=== PATIENT | female | born 1955 | race Caucasian/White ===

== ENCOUNTER 2016-05-13 03:56 | Inpatient (IN) | payer OTHER ==
[2016-05-13] MEDS ORDERED: FAMOTIDINE 20 MG/50 ML IVPB 50 ML IVPB ONE ×2 (05:46→06:12)
[2016-05-13] MEDS ORDERED: SODIUM CHLORIDE 1,000 ML IV STA ×2 (05:46→11:43)
[2016-05-13] MEDS ORDERED: ONDANSETRON 4 MG/2 ML VIAL IVPB ONE (05:48)
--- NOTE | 2016-05-13 05:49 | PDOC ---
[id number] PAIN/RECTAL BLEEDING/VOMITING Time Seen by Provider: 05/13/16 05:15 History Source: Patient Exam Limitations: No Limitations - History of Present Illness Travel History: No Initial Comments: 05/13/16 05:50 60yo Female patient with extensive history and allergies presents to ED c/o lower abd pain with nausea/vomiting-constant & diarrhea-x 10 starting at 6pm last night. Patient state she has history of Diverticulitis recurrent. She states she had a follow up appointment with Dr. Ramirez but was unable to go because she was sick with an infection. Patient was seen by her PCP Dr. Kirk, blood work done 2 weeks ago, ultrasound of abdomen done yesterday as outpatient , but she did not get any results. Patient unable to tolerate po. Patient also states she has allergies to everything. Timing/Duration: reports: constant, getting worse Quality: reports: severe (01/31) Abdominal Pain Onset Location: reports: RUQ Pain Radiation: reports: back Activities at Onset: reports: no specific activity Treatment Prior to Arrive: worse with: analgesics, antacids, cold pack, heat, laxative, enema, other Aggravating Factors: worse with: None, Defecation, Eating, Emotional upset, Exertion, [place], Movement, Voiding, Change in position Alleviating Factors: worse with: None, Belching, Shallow Breathing, Defecation, Eating, Holding Breath, Passing Gas, Change in Position, Rest, Voiding, Vomiting Past History - Travel Traveled outside of the country in the last 30 days: No Close contact w/someone who was outside of country & ill: No - Past Medical History Allergies/Adverse Reactions: Allergies Allergy/AdvReac Type Severity Reaction Status Date / Time aspirin Allergy Verified 04/17/15 18:06 clindamycin Allergy Verified 05/13/16 18:11 codeine Allergy Verified 04/17/15 18:06 epinephrine Allergy Verified 04/17/15 18:06 iodine Allergy Verified 04/17/15 18:06 latex Allergy Verified 05/13/16 18:11 magnesium Allergy Verified 04/17/15 18:06 meperidine HCl [From Demerol] Allergy Verified 04/17/15 18:06 metronidazole [From Flagyl] Allergy Verified 05/13/16 18:11 peanut Allergy Verified 05/13/16 18:12 Penicillins Allergy Verified 04/17/15 18:06 shellfish derived Allergy Verified 04/17/15 18:06 Sulfa (Sulfonamide Allergy Verified 04/17/15 18:06 Antibiotics) garlic AdvReac Verified 05/13/16 18:11 prilocec Allergy Uncoded 04/17/15 18:06 Home Medications: Ambulatory Orders Lisinopril [Prinivil] 10 mg PO DAILY 04/14/13 Lactobacillus Acidophilus [Bacid -] 1 tab PO DAILY tab 05/16/16 Metoclopramide HCl [Reglan -] 5 mg PO TIDAC #90 tablet 05/16/16 Ranitidine [Zantac -] 150 mg PO BID #60 tablet 05/16/16 Simethicone [Mylicon -] 80 mg PO Q4H PRN #0 tab.chew 05/16/16 Vancomycin Oral Solution 250 mg PO Q6HPO #40 ml 05/16/16 Cardiac Disorders: Yes (MURMUR) GI Disorders: Yes (REFLUX) HTN: Yes Hypercholesterolemia: Yes - Psycho/Social/Smoking Cessation Hx Anxiety: No Suicidal Ideation: No Smoking History: Never smoked Hx Alcohol Use: No Drug/Substance Use Hx: No Substance Use Type: None Abd/GI Specific PMHX - Complaint Specific PMHX Colitis: No Diverticulitis: No Gall Bladder Disease: No GERD: No Hepatitis: No Irritable Bowel Synd (IBS): No Pancreatitis: No GI Ulcer Disease: No Review of Systems - Review of Systems Able to Perform ROS?: Yes Is the patient limited Vietnamese proficient: No Constitutional: No: Chills, Fever HEENTM: No: Blurred Vision, Double Vision, Throat Pain Respiratory: No: Cough, Stridor, Wheezing, Productive cough Cardiac (ROS): No: Chest Pain, Edema, Lightheadedness, Palpitations, Chest Tightness ABD/GI: Yes: Diarrhea, Nausea, Poor Fluid Intake, Vomiting. No: Abdominal Distended, Constipated, Poor Appetite : No: Burning, Dysuria, Hematuria Musculoskeletal: Yes: Back Pain Integumentary: No: Bruising, Erythema, Rash Neurological: No: Headache, Seizure, Tingling, Tremors Hematologic/Lymphatic: No: Easy Bleeding, Easy Bruising, Swollen Glands All Other Systems: Reviewed and Negative *Physical Exam - Vital Signs Last Vital Signs Temp Pulse Resp BP Pulse Ox 98 F 91 H 19 152/60 96 05/13/16 04:56 05/13/16 04:56 05/13/16 04:56 05/13/16 04:56 05/13/16 04:56 - Physical Exam General Appearance: Yes: Nourished, Appropriately Dressed, Moderate Distress. No: Severe Distress, Alcohol on Breath HEENT: positive: EOMI, LAMAR, Normal ENT Inspection, Normal Voice, Symmetrical Neck: positive: Trachea midline, Supple. negative: Stridor, Lymphadenopathy (R) , Lymphadenopathy (L) Respiratory/Chest: positive: Lungs Clear, Normal Breath Sounds. negative: Respiratory Distress, Accessory Muscle Use, Labored Respiration, Rapid RR, Decreased Breath Sounds, Crackles, Rhonchi, Stridor, Wheezing, Hyperresonant, Dullness Cardiovascular: positive: Regular Rhythm, Regular Rate. negative: Edema, JVD, Murmur Gastrointestinal/Abdominal: positive: Soft, Increased Bowel Sounds, Guarding, Tenderness (RUQ-Mid abdominal tenderness on examination.). negative: Normal Bowel Sounds, Decreased BS, Distended, Rebound Lymphatic: negative: Adenopathy Musculoskeletal: positive: Normal Inspection. negative: CVA Tenderness Extremity: positive: Normal Capillary Refill, Normal Inspection, Normal Range of Motion Integumentary: positive: Normal Color, Dry, Warm. negative: Erythema, Pale, Cold, Clammy Neurologic: positive: mannequin wig maker II-XII NML intact, Fully Oriented, Alert, Normal Mood/ Affect, Normal Response, Motor Strength 5/5 ED Treatment Course - LABORATORY CBC & Chemistry Diagram: 05/16/16 09:05 05/16/16 09:05 - RADIOLOGY Radiology Studies Ordered: Category Date Time Status ABDOMEN CT WITHOUT CONTRAST [CT] Stat CT Scan 05/13/16 05:46 Ordered *DC/Admit/Observation/Transfer Diagnosis at time of Disposition: Colitis Abdominal pain Qualifiers: Abdominal location: unspecified location Qualified Code(s): R10.9 - Unspecified abdominal pain - Discharge Dispostion Disposition: HOME Condition at time of disposition: Improved - Prescriptions
[2016-05-13] MEDS ORDERED: ONDANSETRON 4 MG/2 ML VIAL ONE (06:24)
--- NOTE | 2016-05-13 07:51 | PDOC ---
*Physical Exam - Vital Signs Last Vital Signs Temp Pulse Resp BP Pulse Ox 98 F 91 H 19 152/60 96 05/13/16 04:56 05/13/16 04:56 05/13/16 04:56 05/13/16 04:56 05/13/16 04:56 - Physical Exam General Appearance: Yes: Appropriately Dressed. No: Apparent Distress HEENT: positive: Normal Voice Neck: positive: Supple Respiratory/Chest: negative: Respiratory Distress Gastrointestinal/Abdominal: positive: Normal Bowel Sounds, Soft. negative: Distended, Guarding, Rebound Musculoskeletal: negative: CVA Tenderness Extremity: positive: Normal Inspection Integumentary: positive: Dry, Warm Neurologic: positive: Fully Oriented, Alert, Normal Mood/Affect ED Treatment Course - LABORATORY CBC & Chemistry Diagram: 05/13/16 07:55 05/13/16 07:55 - RADIOLOGY Radiology Studies Ordered: Category Date Time Status ABDOMEN & PELVIS CT WITH CONTR [CT] Stat CT Scan 05/13/16 07:37 Ordered - Medications Given in the ED: ED Medications Discontinued Medications Generic Name Dose Route Start Last Admin Trade Name Demarq PRN Reason Stop Dose Admin Famotidine/Sodium Chloride 50 mls @ 100 mls/hr 05/13/16 05:46 05/13/16 06:35 Pepcid 20 Mg Premixed Ivpb - IVPB 05/13/16 06:15 100 mls/hr ONCE ONE Administration Sodium Chloride 1,000 mls @ 1,000 mls/hr 05/13/16 05:46 05/13/16 06:35 Normal Saline - IV 05/13/16 06:45 1,000 mls/hr ASDIR STA Administration Ondansetron HCl 4 mg 05/13/16 05:48 05/13/16 06:40 Zofran Injection IVPB 05/13/16 05:49 4 mg ONCE ONE Administration Medical Decision Making - Medical Decision Making 05/13/16 07:45 Received signout at 7 AM. Patient is a 60-year-old female extensive medication allergies, diverticulitis, presenting with abdominal pain with nausea vomiting and diarrhea 10 days. Seen by her primary doctor, Dr. Abreu, and had blood work 2 weeks ago and states she also had an ultrasound r/o biliary pathology yesterday but does not yet know results. Symptoms worsen so patient presented to ED. Labs/CT pending 05/13/16 08:11 On my reassessment, patient complaining of pain to multiple areas including the right upper quadrant which she says she's had for a year on and off. Had an ultrasound that was done yesterday but does not yet know results. Also complaining of lower abdominal "soreness" since last night with nausea, vomiting and diarrhea. Patient in no apparent distress with no significant tenderness on exam currently. Labs/CT pending 05/13/16 08:15 05/13/16 08:26 Pt called me over to restroom to show me a bloody BM in toilet. Now states she' s been having bloody diarrhea since last night. T&S added to labs 05/13/16 11:26 Colitis to transverse colon w/ no evidence of diverticulitis specifically. Given bloody diarrhea and elevated white count, will treat with antibiotics at this time for ?infectious diarrhea. Pt has an extensive allergy profile including to flagyl (rash) and penicillin. Will give cipro at this time. In-pt team can discuss additional abx w/ ID as necessary. Case discussed with Dr. Maharaj, who is covering for Dr. Abreu and agrees w/ admission. has no knowledge of yesterday's ultrasound report. *DC/Admit/Observation/Transfer Diagnosis at time of Disposition: Colitis Abdominal pain Qualifiers: Abdominal location: unspecified location Qualified Code(s): R10.9 - Unspecified abdominal pain - Discharge Dispostion Condition at time of disposition: Fair Admit: Yes
[2016-05-13 08:15] LABS: BASOPHIL 0.2 % (0-2.0); EOSINOPHIL 0.2 % (0-4.5); MCH 26.9 pg (25.7-33.7); MCHC 32.5 g/dl (32.0-36.0); MEAN CELL VOLUME 82.8 fl (80-96); MEAN PLT VOLUME 9.4 fl (7.5-11.1); NEUTROPHILS 88.9 % (42.8-82.8); PLATELET COUNT 211 K/MM3 (134-434); RDW 14.1 % (11.6-15.6); WHITE BLOOD COUNT 12.4 K/mm3 (4.0-10.0)
[2016-05-13 08:35] LABS: URINE APPEARANCE CLEAR; URINE BILIRUBIN NEGATIVE (NEGATIVE); URINE COLOR STRAW; URINE GLUCOSE (UA) NEGATIVE (NEGATIVE); URINE KETONE TRACE (NEGATIVE); URINE LEUK ESTERASE NEGATIVE (NEGATIVE); URINE NITRITE NEGATIVE (NEGATIVE); URINE PROTEIN NEGATIVE (NEGATIVE); URINE UROBILINOGEN NEGATIVE E.U./dl (0.2-1.0)
[2016-05-13 08:36] LABS: URINE BLOOD 1+ (NEGATIVE)
[2016-05-13 08:38] LABS: URINE MUCUS RARE; URINE RBC 1 /hpf (0-3); URINE WBC 3 /hpf (3-5)
[2016-05-13 08:39] LABS: ALBUMIN 3.5 g/dl (3.4-5.0); ALK PHOS 123 U/L (45-117); AMYLASE 41 U/L (25-115); ANION GAP 9 (8-16); BILIRUBIN,TOTAL 0.6 mg/dL (0.2-1.0); CALCIUM 8.6 mg/dL (8.5-10.1); CO2 25 mmol/L (21-32); CREATININE 0.5 mg/dL (0.55-1.02); GLUCOSE,RANDOM 100 mg/dL (74-106); SGOT/AST 14 U/L (15-37); SGPT/ALT 21 U/L (12-78); TOT PROT 6.7 g/dl (6.4-8.2)
[2016-05-13 09:21] LABS: INR 1.11 (0.82-1.09); PROTHROMBIN TIME (PATIENT) 12.2 SEC (9.98-11.88)
[2016-05-13] MEDS ORDERED: DEXTROSE 5%-0.45% SALINE 1,000 ML IV SCH (09:30)
[2016-05-13] MEDS: LISINOPRIL 10 MG TABLET (FP) PO SCH (09:42)
[2016-05-13] MEDS ORDERED: LISINOPRIL 5 MG TABLET (FP) ONE (10:03)
[2016-05-13] MEDS: FAMOTIDINE 20 MG/50 ML IVPB 50 ML IVPB SCH ×2 (10:33→21:36)
[2016-05-13] MEDS: HEPARIN NA (PORCINE) 5,000 UNITS/ML 1ML VIAL SQ SCH ×2 (10:45→21:37)
[2016-05-13] MEDS ORDERED: METRONIDAZOLE 500 MG PREMIXED 100 ML IVPB ONE (11:29)
[2016-05-13] MEDS ORDERED: CIPROFLOXACIN 400 MG/D5W 200 ML IVPB ONE (11:29)
[2016-05-13] MEDS ORDERED: METOCLOPRAMIDE HCL INJECTION 10 MG/2 ML VIAL IVPUSH ONE (11:43)
[2016-05-13] MEDS ORDERED: METOCLOPRAMIDE HCL INJECTION 10 MG/2 ML VIAL ONE (12:14)
--- NOTE | 2016-05-13 12:57 | HP ---
Admitting History and Physical - Primary Care Physician PCP: Yaneli Ramirez - Admission Chief Complaint: came in for abdominal pain and vommitting History of Present Illness: 60yo Female patient with extensive history and allergies presents to ED c/o lower abd pain with nausea/vomiting-constant & diarrhea-x 10 starting at 6pm last night. Patient state she has history of Diverticulitis recurrent. She states she had a follow up appointment with Dr. Ramirez but was unable to go because she was sick with an infection. Patient was seen by her PCP Dr. ramirez, blood work done 2 weeks ago, ultrasound of abdomen done yesterday as outpatient , but she did not get any results. Patient unable to tolerate po. Patient also states she has allergies to everything. Timing/Duration: reports: constant, getting worse Quality: reports: severe (01/31) Abdominal Pain Onset Location: reports: RUQ Pain Radiation: reports: back Activities at Onset: reports: no specific activity Treatment Prior to Arrive: worse with: analgesics, antacids, cold pack, heat, laxative, enema, other Aggravating Factors: worse with: None, Defecation, Eating, Emotional upset, Exertion, [place], Movement, Voiding, Change in position Alleviating Factors: worse with: None, Belching, Shallow Breathing, Defecation, Eating, Holding Breath, Passing Gas, Change in Position, Rest, Voiding, Vomiting per patient she came in bc yesterday she was having vomitting for the entire afternoon and evening with dry heaves and excructiing lower abdominal pain, she was so weak that she came in ER patient got flagyl and cipro in the er and antiemetics as well History Source: Patient - Past Medical History Cardiovascular: Yes: HTN - Smoking History Smoking history: Never smoked - Alcohol/Substance Use Hx Alcohol Use: No Home Medications - Allergies Allergies/Adverse Reactions: Allergies Allergy/AdvReac Type Severity Reaction Status Date / Time aspirin Allergy Verified 04/17/15 18:06 codeine Allergy Verified 04/17/15 18:06 epinephrine Allergy Verified 04/17/15 18:06 iodine Allergy Verified 04/17/15 18:06 magnesium Allergy Verified 04/17/15 18:06 meperidine HCl [From Demerol] Allergy Verified 04/17/15 18:06 Penicillins Allergy Verified 04/17/15 18:06 shellfish derived Allergy Verified 04/17/15 18:06 Sulfa (Sulfonamide Allergy Verified 04/17/15 18:06 Antibiotics) prilocec Allergy Uncoded 04/17/15 18:06 - Home Medications Home Medications: Ambulatory Orders Lisinopril [Prinivil -] 10 mg PO DAILY 04/14/13 Physical Examination Vital Signs: Vital Signs Temperature 98 F 05/13/16 09:45 Pulse Rate 83 05/13/16 12:48 Respiratory Rate 18 05/13/16 12:48 Blood Pressure 123/82 05/13/16 12:48 O2 Sat by Pulse Oximetry (%) 98 05/13/16 12:48 Imaging - Results Cat Scan: Report Reviewed Problem List - Problems (1) Colitis Assessment/Plan: ct scan noted ivf zofran iv abx gi and srugery and ID eval elevated wbc count Code(s): K52.9 - NONINFECTIVE GASTROENTERITIS AND COLITIS, UNSPECIFIED
[2016-05-13] MEDS ORDERED: ONDANSETRON 4 MG/2 ML VIAL IVPUSH PRN (12:58)
[2016-05-13] MEDS ORDERED: HYDROmorphone HCL CARPU-JECT 1 MG/1 ML DISP.SYRIN IVPB PRN (15:41)
[2016-05-13] MEDS ORDERED: ACETAMINOPHEN 1000 MG/100 ML VIAL (NON FORMULARY) IVPB PRN (15:44)
--- NOTE | 2016-05-13 15:44 | CON.GI ---
Consult Consult Specialty:: gi Referred by:: Dr Abreu - History of Present Illness History of Present Illness: 60 y/o female was given Cleocin 2 weeks ago for sinus infection. Today has multiple episodes of bloody diarrhea associated with diffuse abdominal pain . No fever,no travel history - Past Medical History Cardio/Vascular: Yes: HTN - Alcohol/Substance Use Hx Alcohol Use: No - Smoking History Smoking history: Never smoked Home Medications - Allergies Allergies/Adverse Reactions: Allergies Allergy/AdvReac Type Severity Reaction Status Date / Time aspirin Allergy Verified 04/17/15 18:06 codeine Allergy Verified 04/17/15 18:06 epinephrine Allergy Verified 04/17/15 18:06 iodine Allergy Verified 04/17/15 18:06 magnesium Allergy Verified 04/17/15 18:06 meperidine HCl [From Demerol] Allergy Verified 04/17/15 18:06 Penicillins Allergy Verified 04/17/15 18:06 shellfish derived Allergy Verified 04/17/15 18:06 Sulfa (Sulfonamide Allergy Verified 04/17/15 18:06 Antibiotics) prilocec Allergy Uncoded 04/17/15 18:06 - Home Medications Home Medications: Ambulatory Orders Lisinopril [Prinivil -] 10 mg PO DAILY 04/14/13 Physical Exam-GI Vital Signs: Vital Signs Temperature 98 F 05/13/16 09:45 Pulse Rate 83 05/13/16 12:48 Respiratory Rate 18 05/13/16 12:48 Blood Pressure 123/82 05/13/16 12:48 O2 Sat by Pulse Oximetry (%) 98 05/13/16 12:48 Constitutional: Yes: Well Nourished Eyes: Yes: Conjunctiva Clear HENT: Yes: Atraumatic Neck: Yes: Supple Cardiovascular: Yes: Regular Rate and Rhythm Respiratory: Yes: CTA Bilaterally ...Palpate: Yes: Soft, Tenderness (==diffuse). No: Firm/Rigid, Guarding, Hepatomegaly, Mass, Pulsatile Mass, Splenomegaly Labs: INR, PTT INR 1.11 (0.82-1.09) 05/13/16 07:50 Imaging - Results Cat Scan: Report Reviewed Problem List - Problems (1) Infectious diarrhea Assessment/Plan: most likely c.diff R> Vanco Po pt allergic to Flagyl stool analysis Code(s): A09 - INFECTIOUS GASTROENTERITIS AND COLITIS, UNSPECIFIED
--- NOTE | 2016-05-13 17:12 | PN ---
Progress Note (short form) - Note Progress Note: ID Consult dictated Probable C difficile colitis Multiple antibiotic allergies Await stool studies Empiric po vancomycin
--- NOTE | 2016-05-13 17:26 | CONSULT ---
Consult Consult Specialty:: Surgery Referred by:: Ld Reason for Consultation:: Abdomional pain , and diarrhea since yesterday. - History of Present Illness Chief Complaint: C/O having lower abdominal pain , and diarrhea since yesterday evening. H/O Diverticulitis. - History Source History Provided By: Patient - Past Medical History Cardio/Vascular: Yes: HTN - Alcohol/Substance Use Hx Alcohol Use: No - Smoking History Smoking history: Never smoked Home Medications - Allergies Allergies/Adverse Reactions: Allergies Allergy/AdvReac Type Severity Reaction Status Date / Time aspirin Allergy Verified 04/17/15 18:06 codeine Allergy Verified 04/17/15 18:06 epinephrine Allergy Verified 04/17/15 18:06 iodine Allergy Verified 04/17/15 18:06 magnesium Allergy Verified 04/17/15 18:06 meperidine HCl [From Demerol] Allergy Verified 04/17/15 18:06 Penicillins Allergy Verified 04/17/15 18:06 shellfish derived Allergy Verified 04/17/15 18:06 Sulfa (Sulfonamide Allergy Verified 04/17/15 18:06 Antibiotics) prilocec Allergy Uncoded 04/17/15 18:06 - Home Medications Home Medications: Ambulatory Orders Lisinopril [Prinivil -] 10 mg PO DAILY 04/14/13 Physical Exam Vital Signs: Vital Signs Temperature 98.3 F 05/13/16 17:11 Pulse Rate 70 05/13/16 17:11 Respiratory Rate 18 05/13/16 17:11 Blood Pressure 146/76 05/13/16 17:11 O2 Sat by Pulse Oximetry (%) 100 05/13/16 15:54 Imaging - Results Cat Scan: Report Reviewed, Image Reviewed Problem List - Problems (1) Colitis Code(s): K52.9 - NONINFECTIVE GASTROENTERITIS AND COLITIS, UNSPECIFIED (2) Diverticulitis Code(s): K57.92 - DVTRCLI OF INTEST, PART UNSP, W/O PERF OR ABSCESS W/O BLEED Qualifiers: Diverticulitis site: large intestine Diverticulitis bleeding: without bleeding Diverticulitis complication: without perforation or abscess Qualified Code(s): K57.32 - Diverticulitis of large intestine without perforation or abscess without bleeding (3) Abdominal pain Code(s): R10.9 - UNSPECIFIED ABDOMINAL PAIN Qualifiers: Abdominal location: unspecified location Qualified Code(s): R10.9 - Unspecified abdominal pain (4) Hypertension Code(s): I10 - ESSENTIAL (PRIMARY) HYPERTENSION Qualifiers: Hypertension type: essential hypertension Qualified Code(s): I10 - Essential (primary) hypertension Assessment/Plan Continue antibiotics, hydrate. R/O C.Diff colitis Will follow.
[2016-05-13] MEDS ORDERED: PT OWN MED DRAWER 7, Y5N ONE (17:37)
[2016-05-13 18:03] VITALS: BMI 34.3
[2016-05-13] MEDS: VANCOMYCIN 250 MG/5 ML ORAL SOLUTION PO SCH (18:05)
--- NOTE | 2016-05-13 18:37 | CONS ---
DATE OF CONSULTATION: DATE OF DICTATION: 05/13/2016 INFECTIOUS DISEASE CONSULTATION HISTORY OF PRESENT ILLNESS: Patient is a 60-year-old female who is evaluated for abdominal pain and bloody diarrhea. Patient approximately 2 weeks ago took an extended course of clindamycin for an infection. She is now admitted with complaints of both lower and upper abdominal pain, nausea, vomiting, diarrhea. She has had multiple episodes of diarrhea and now reports bloody diarrhea. CAT scan of the abdomen and pelvis shows thick and transverse colon. She was empirically treated with a quinolone and Flagyl; however, she reports allergies to FLAGYL, specifically she develops a rash on Flagyl. She denies any associated fever or chills. PAST MEDICAL HISTORY: Positive for recurrent diverticulitis. ALLERGIES: ASPIRIN, CODEINE, PENICILLIN, DEMEROL, SULFA, PRILOSEC, FLAGYL. MEDICATION: Lisinopril, Levaquin. SOCIAL HISTORY: Lives at home. Nonsmoker, nondrinker. SYSTEMIC REVIEW: Neurologic: No loss of consciousness, seizure activity, or focal weakness. Cardiac: Negative chest pain or palpitations. Respiratory: Negative cough or sputum production. Gastrointestinal: As per HPI. Genitourinary: Negative for urinary tract infection. LABORATORY DATA: White count 12.4, 88 neutrophils, 7 lymphocytes, 2 monocytes. Hematocrit 40.3, platelet count 211. Creatinine 0.5. PHYSICAL EXAMINATION: General: She is i moderate distress secondary to abdominal pain. Vital signs: Temperature 98.2, blood pressure 128/61, pulse 78 regular, respirations 18 per minute. HEENT: Sclerae anicteric. Cardiovascular: Heart sounds S1, S2. Respiratory: Lungs clear. Abdomen: Soft. There is mild diffuse tenderness, upper and lower quadrants bilaterally. No mass, rebound, or rigidity. Extremities: Negative for edema. IMPRESSION: 1. Probable Clostridium difficile colitis. 2. Multiple antibiotic allergies. Would discontinue antibiotics, continue oral vancomycin, await stool, C. difficile, OCCUPATIONAL HEALTH NURSE, and ova and parasite. Will follow. Thank you for the kind referral. ULYSSES VILLARREAL M.D. [facility]/[id number]
[2016-05-13] MEDS: DEXTROSE 5%-NORMAL SALINE 1,000 ML IV SCH (20:39)
[2016-05-14] MEDS: VANCOMYCIN 250 MG/5 ML ORAL SOLUTION PO SCH ×5 (00:32→23:43)
[2016-05-14] MEDS: DEXTROSE 5%-NORMAL SALINE 1,000 ML IV SCH (05:51)
[2016-05-14] MEDS ORDERED: LEVOFLOXACIN 500 MG IVPB 100 ML IVPB SCH (06:00)
[2016-05-14] MEDS: LISINOPRIL 10 MG TABLET (FP) PO SCH (09:57)
[2016-05-14] MEDS: FAMOTIDINE 20 MG/50 ML IVPB 50 ML IVPB SCH (09:59)
[2016-05-14] MEDS: HEPARIN NA (PORCINE) 5,000 UNITS/ML 1ML VIAL SQ SCH ×2 (09:59→21:08)
[2016-05-14 11:02] LABS: BASOPHIL 0.5 % (0-2.0); EOSINOPHIL 0.8 % (0-4.5); MCHC 32.5 g/dl (32.0-36.0); MEAN PLT VOLUME 9.2 fl (7.5-11.1); NEUTROPHILS 81.9 % (42.8-82.8); PLATELET COUNT 192 K/MM3 (134-434); RDW 14.2 % (11.6-15.6); WHITE BLOOD COUNT 12.3 K/mm3 (4.0-10.0)
--- NOTE | 2016-05-14 11:10 | PN ---
Progress Note, Physician History of Present Illness: Reports improvement in diarrhea Still with abdominal discomfort, bloating - Current Medication List Current Medications: Active Medications Heparin Sodium (Porcine) (Heparin -) 5,000 unit SQ BID [facility] Last Admin: 05/14/16 09:59 Dose: Not Given Famotidine/Sodium Chloride (Pepcid 20 Mg Premixed Ivpb -) 50 mls @ 100 mls/hr IVPB BID [facility] Last Admin: 05/14/16 09:59 Dose: 100 mls/hr Dextrose/Sodium Chloride (D5-Ns -) 1,000 mls @ 125 mls/hr IV ASDIR [facility] Stop: 05/15/16 23:44 Last Admin: 05/14/16 05:51 Dose: 125 mls/hr Lisinopril (Prinivil) 10 mg PO DAILY [facility] Last Admin: 05/14/16 09:57 Dose: Not Given Ondansetron HCl (Zofran Injection) 4 mg IVPUSH Q6H PRN PRN Reason: NAUSEA AND/OR VOMITING Last Admin: 05/14/16 01:50 Dose: 4 mg Vancomycin HCl (Vancomycin Oral Solution) 250 mg PO Q6HPO [facility] Last Admin: 05/14/16 05:51 Dose: 250 mg - Objective Vital Signs: Vital Signs Temperature 98.4 F 05/14/16 05:40 Pulse Rate 72 05/14/16 05:40 Respiratory Rate 20 05/14/16 05:40 Blood Pressure 133/73 05/14/16 05:40 O2 Sat by Pulse Oximetry (%) 96 05/13/16 21:00 Constitutional: Yes: No Distress Cardiovascular: Yes: Regular Rate and Rhythm, S1 Respiratory: Yes: CTA Bilaterally Gastrointestinal: Yes: Normal Bowel Sounds, Soft, Tenderness (mild distention, diffuse tenderness) Edema: No Labs: CBC, BMP 05/14/16 08:18 INR, PTT INR 1.11 (0.82-1.09) 05/13/16 07:50 Assessment/Plan Probable C difficile colitis Await stool studies Continue po vancomycin
[2016-05-14 12:08] LABS: ALBUMIN 3.2 g/dl (3.4-5.0); ALK PHOS 103 U/L (45-117); ANION GAP 9 (8-16); BILIRUBIN,TOTAL 0.8 mg/dL (0.2-1.0); CO2 25 mmol/L (21-32); CREATININE 0.7 mg/dL (0.55-1.02); GLUCOSE,RANDOM 120 mg/dL (74-106); SGOT/AST 9 U/L (15-37); SGPT/ALT 17 U/L (12-78); TOT PROT 6.2 g/dl (6.4-8.2)
[2016-05-14] MEDS ORDERED: SIMETHICONE 80 MG TAB.CHEW (FP) PO PRN (13:28)
[2016-05-14] MEDS ORDERED: ONDANSETRON *ODT* 4 MG TABLET SL PRN (13:28)
--- NOTE | 2016-05-14 13:36 | PN ---
Progress Note, Physician Chief Complaint: THIS IS MY FIRST MEDICAL ENCOUNTER WITH THIS PATIENT CT SCAN REVIEWED CHART AND MEDICATIONS REVIEWED AWAKE ALERT DENIES FEVER C/O GAS PAIN/BLOATING - Current Medication List Current Medications: Active Medications Heparin Sodium (Porcine) (Heparin -) 5,000 unit SQ BID [facility] Last Admin: 05/14/16 09:59 Dose: Not Given Famotidine/Sodium Chloride (Pepcid 20 Mg Premixed Ivpb -) 50 mls @ 100 mls/hr IVPB BID [facility] Last Admin: 05/14/16 09:59 Dose: 100 mls/hr Dextrose/Sodium Chloride (D5-Ns -) 1,000 mls @ 125 mls/hr IV ASDIR [facility] Stop: 05/15/16 23:44 Last Admin: 05/14/16 05:51 Dose: 125 mls/hr Lactobacillus Acidophilus (Bacid -) 1 tab PO DAILY [facility] Lisinopril (Prinivil) 10 mg PO DAILY [facility] Last Admin: 05/14/16 09:57 Dose: Not Given Ondansetron HCl (Zofran Odt -) 8 mg SL Q6H PRN PRN Reason: NAUSEA AND/OR VOMITING Ranitidine HCl (Zantac -) 150 mg PO BID [facility] Simethicone (Mylicon -) 80 mg PO Q4H PRN PRN Reason: DYSPEPSIA Vancomycin HCl (Vancomycin Oral Solution) 250 mg PO Q6HPO [facility] Last Admin: 05/14/16 12:35 Dose: 250 mg - Objective Vital Signs: Vital Signs Temperature 98.4 F 05/14/16 05:40 Pulse Rate 74 05/14/16 10:00 Respiratory Rate 18 05/14/16 10:00 Blood Pressure 119/75 05/14/16 10:00 O2 Sat by Pulse Oximetry (%) 97 05/14/16 09:00 Constitutional: Yes: Mild Distress Eyes: Yes: WNL HENT: Yes: WNL Neck: Yes: WNL Cardiovascular: Yes: WNL Respiratory: Yes: WNL Gastrointestinal: Yes: Tenderness Genitourinary: Yes: WNL Musculoskeletal: Yes: WNL Extremities: Yes: WNL Edema: No Peripheral Pulses WNL: Yes Integumentary: Yes: WNL Wound/Incision: Yes: Clean/Dry Neurological: Yes: WNL ...Motor Strength: WNL Psychiatric: Yes: WNL Labs: CBC, BMP 05/14/16 08:18 05/14/16 08:18 INR, PTT INR 1.11 (0.82-1.09) 05/13/16 07:50 Problem List - Problems (1) Abdominal pain Code(s): R10.9 - UNSPECIFIED ABDOMINAL PAIN Qualifiers: Abdominal location: unspecified location Qualified Code(s): R10.9 - Unspecified abdominal pain (2) Colitis Code(s): K52.9 - NONINFECTIVE GASTROENTERITIS AND COLITIS, UNSPECIFIED (3) Hypertension Code(s): I10 - ESSENTIAL (PRIMARY) HYPERTENSION Qualifiers: Hypertension type: essential hypertension Qualified Code(s): I10 - Essential (primary) hypertension (4) Infectious diarrhea Code(s): A09 - INFECTIOUS GASTROENTERITIS AND COLITIS, UNSPECIFIED Assessment/Plan CDIFF COLITIS ON VANCO PO CHECK ESR AND CRP TODAY AND TOMORROW DC IVF , ENCOURAGE PO INTAKE DC PLANNING TOMORROW OR MONDAY DEPENDING ON RESULTS
--- NOTE | 2016-05-14 14:27 | PN ---
GI Progress Note Subjective: diarrhea resolved, no nausea, no vomiting - Objective Vital Signs: Vital Signs Temperature 98.4 F 05/14/16 05:40 Pulse Rate 74 05/14/16 10:00 Respiratory Rate 18 05/14/16 10:00 Blood Pressure 119/75 05/14/16 10:00 O2 Sat by Pulse Oximetry (%) 97 05/14/16 09:00 Constitutional: Well Nourished Eyes: Yes: Conjunctiva Clear HENT: Yes: Atraumatic Neck: Yes: Trachea Midline Cardiovascular: Yes: Regular Rate and Rhythm Respiratory: Yes: CTA Bilaterally ...Palpate: Yes: Soft. No: Firm/Rigid, Guarding, Hepatomegaly, Mass, Pulsatile Mass, Splenomegaly, Tenderness, Tenderness, Epigastium Labs: CBC, BMP 05/14/16 08:18 05/14/16 08:18 INR, PTT INR 1.11 (0.82-1.09) 05/13/16 07:50 Problem List - Problems (1) Infectious diarrhea Assessment/Plan: most likely clostridium R>Vancomycin 250mg tid advance diet Code(s): A09 - INFECTIOUS GASTROENTERITIS AND COLITIS, UNSPECIFIED
[2016-05-14] MEDS: LACTOBACILLUS ACIDOPHILUS 1 EACH TAB (FP) PO SCH (14:45)
[2016-05-14] MEDS: RANITIDINE HCL 150 MG TABLET (FP) PO SCH ×2 (14:46→21:11)
--- NOTE | 2016-05-14 15:40 | PN ---
Progress Note, Physician - Current Medication List Current Medications: Active Medications Heparin Sodium (Porcine) (Heparin -) 5,000 unit SQ BID [facility] [place] Last Admin: 05/14/16 09:59 Dose: Not Given Lactobacillus Acidophilus (Bacid -) 1 tab PO DAILY [facility] [place] Last Admin: 05/14/16 14:45 Dose: 1 tab Lisinopril (Prinivil) 10 mg PO DAILY [facility] [place] Last Admin: 05/14/16 09:57 Dose: Not Given Metoclopramide HCl (Reglan -) 5 mg PO TIDAC [facility] [place] Ondansetron HCl (Zofran Odt -) 8 mg SL Q6H PRN PRN Reason: NAUSEA AND/OR VOMITING Ranitidine HCl (Zantac -) 150 mg PO BID [facility] [place] Last Admin: 05/14/16 14:46 Dose: 150 mg Simethicone (Mylicon -) 80 mg PO Q4H PRN PRN Reason: DYSPEPSIA Last Admin: 05/14/16 14:45 Dose: 80 mg Vancomycin HCl (Vancomycin Oral Solution) 250 mg PO Q6HPO [facility] [place] Last Admin: 05/14/16 12:35 Dose: 250 mg - Objective Vital Signs: Vital Signs Temperature 98.4 F 05/14/16 14:00 Pulse Rate 70 05/14/16 14:00 Respiratory Rate 20 05/14/16 14:00 Blood Pressure 136/80 05/14/16 14:00 O2 Sat by Pulse Oximetry (%) 97 05/14/16 09:00 Labs: CBC, BMP 05/14/16 08:18 05/14/16 08:18 INR, PTT INR 1.11 (0.82-1.09) 05/13/16 07:50 Problem List - Problems (1) Colitis Code(s): K52.9 - NONINFECTIVE GASTROENTERITIS AND COLITIS, UNSPECIFIED (2) Diverticulitis Code(s): K57.92 - DVTRCLI OF INTEST, PART UNSP, W/O PERF OR ABSCESS W/O BLEED Qualifiers: Diverticulitis site: large intestine Diverticulitis bleeding: without bleeding Diverticulitis complication: without perforation or abscess Qualified Code(s): K57.32 - Diverticulitis of large intestine without perforation or abscess without bleeding (3) Abdominal pain Code(s): R10.9 - UNSPECIFIED ABDOMINAL PAIN Qualifiers: Abdominal location: unspecified location Qualified Code(s): R10.9 - Unspecified abdominal pain (4) Hypertension Code(s): I10 - ESSENTIAL (PRIMARY) HYPERTENSION Qualifiers: Hypertension type: essential hypertension Qualified Code(s): I10 - Essential (primary) hypertension Assessment/Plan Surgery: Patient feels better, has no abdominal pain. Abdomen is soft , not tender. Stools : positive for occult blood, C.Diff positive. Diagnosis : Infectious diarrhea. On antibiotics. WBC 82607 On Cipro, Metronidazole and Vancomycin.
[2016-05-14] MEDS: METOCLOPRAMIDE HCL 10 MG TABLET (FP) PO SCH (18:24)
[2016-05-15] MEDS: VANCOMYCIN 250 MG/5 ML ORAL SOLUTION PO SCH ×4 (06:17→23:37)
[2016-05-15] MEDS: METOCLOPRAMIDE HCL 10 MG TABLET (FP) PO SCH ×3 (06:17→16:20)
[2016-05-15] MEDS: LACTOBACILLUS ACIDOPHILUS 1 EACH TAB (FP) PO SCH (09:24)
[2016-05-15] MEDS: HEPARIN NA (PORCINE) 5,000 UNITS/ML 1ML VIAL SQ SCH ×2 (09:24→21:46)
[2016-05-15] MEDS: LISINOPRIL 10 MG TABLET (FP) PO SCH (09:25)
[2016-05-15] MEDS: RANITIDINE HCL 150 MG TABLET (FP) PO SCH ×2 (11:02→21:46)
[2016-05-15] MEDS ORDERED: PT OWN MED DRAWER 7, Y5N ONE ×3 (11:53→23:36)
--- NOTE | 2016-05-15 13:46 | PN ---
Progress Note, Physician Chief Complaint: ABD PAIN +cdiff ag - Current Medication List Current Medications: Active Medications Heparin Sodium (Porcine) (Heparin -) 5,000 unit SQ BID [facility] Last Admin: 05/15/16 09:24 Dose: Not Given Lactobacillus Acidophilus (Bacid -) 1 tab PO DAILY [facility] Last Admin: 05/15/16 09:24 Dose: 1 tab Lisinopril (Prinivil) 10 mg PO DAILY [facility] Last Admin: 05/15/16 09:25 Dose: Not Given Metoclopramide HCl (Reglan -) 5 mg PO TIDAC [facility] Last Admin: 05/15/16 12:03 Dose: 5 mg Ondansetron HCl (Zofran Odt -) 8 mg SL Q6H PRN PRN Reason: NAUSEA AND/OR VOMITING Ranitidine HCl (Zantac -) 150 mg PO BID [facility] Last Admin: 05/15/16 11:02 Dose: 150 mg Simethicone (Mylicon -) 80 mg PO Q4H PRN PRN Reason: DYSPEPSIA Last Admin: 05/14/16 14:45 Dose: 80 mg Vancomycin HCl (Vancomycin Oral Solution) 250 mg PO Q6HPO [facility] Last Admin: 05/15/16 12:02 Dose: 250 mg - Objective Vital Signs: Vital Signs Temperature 98.3 F 05/15/16 09:22 Pulse Rate 81 05/15/16 09:22 Respiratory Rate 20 05/15/16 09:22 Blood Pressure 116/65 05/15/16 09:22 O2 Sat by Pulse Oximetry (%) 98 05/15/16 09:00 Constitutional: Yes: Mild Distress Eyes: Yes: WNL HENT: Yes: WNL Neck: Yes: WNL Cardiovascular: Yes: WNL Respiratory: Yes: WNL Gastrointestinal: Yes: Tenderness Genitourinary: Yes: WNL Musculoskeletal: Yes: WNL Extremities: Yes: WNL Edema: No Peripheral Pulses WNL: Yes Integumentary: Yes: WNL Wound/Incision: Yes: Clean/Dry Neurological: Yes: WNL ...Motor Strength: WNL Psychiatric: Yes: WNL Labs: CBC, BMP 05/14/16 08:18 05/14/16 08:18 INR, PTT INR 1.11 (0.82-1.09) 05/13/16 07:50 Problem List - Problems (1) Abdominal pain Code(s): R10.9 - UNSPECIFIED ABDOMINAL PAIN Qualifiers: Abdominal location: unspecified location Qualified Code(s): R10.9 - Unspecified abdominal pain (2) Colitis Code(s): K52.9 - NONINFECTIVE GASTROENTERITIS AND COLITIS, UNSPECIFIED (3) Hypertension Code(s): I10 - ESSENTIAL (PRIMARY) HYPERTENSION Qualifiers: Hypertension type: essential hypertension Qualified Code(s): I10 - Essential (primary) hypertension (4) Infectious diarrhea Code(s): A09 - INFECTIOUS GASTROENTERITIS AND COLITIS, UNSPECIFIED (5) Clostridium difficile colitis Code(s): A04.7 - ENTEROCOLITIS DUE TO CLOSTRIDIUM DIFFICILE Assessment/Plan CDIFF COLITIS ON VANCO PO CHECK ESR AND CRP TODAY AND TOMORROW DC IVF , ENCOURAGE PO INTAKE
--- NOTE | 2016-05-15 14:20 | PN ---
Progress Note, Physician - Current Medication List Current Medications: Active Medications Heparin Sodium (Porcine) (Heparin -) 5,000 unit SQ BID [facility] Last Admin: 05/15/16 09:24 Dose: Not Given Lactobacillus Acidophilus (Bacid -) 1 tab PO DAILY [facility] Last Admin: 05/15/16 09:24 Dose: 1 tab Lisinopril (Prinivil) 10 mg PO DAILY [facility] Last Admin: 05/15/16 09:25 Dose: Not Given Metoclopramide HCl (Reglan -) 5 mg PO TIDAC [facility] Last Admin: 05/15/16 12:03 Dose: 5 mg Ondansetron HCl (Zofran Odt -) 8 mg SL Q6H PRN PRN Reason: NAUSEA AND/OR VOMITING Ranitidine HCl (Zantac -) 150 mg PO BID [facility] Last Admin: 05/15/16 11:02 Dose: 150 mg Simethicone (Mylicon -) 80 mg PO Q4H PRN PRN Reason: DYSPEPSIA Last Admin: 05/14/16 14:45 Dose: 80 mg Vancomycin HCl (Vancomycin Oral Solution) 250 mg PO Q6HPO [facility] Last Admin: 05/15/16 12:02 Dose: 250 mg - Objective Vital Signs: Vital Signs Temperature 98.3 F 05/15/16 09:22 Pulse Rate 81 05/15/16 09:22 Respiratory Rate 20 05/15/16 09:22 Blood Pressure 116/65 05/15/16 09:22 O2 Sat by Pulse Oximetry (%) 98 05/15/16 09:00 Labs: CBC, BMP 05/14/16 08:18 05/14/16 08:18 INR, PTT INR 1.11 (0.82-1.09) 05/13/16 07:50 Problem List - Problems (1) Colitis Code(s): K52.9 - NONINFECTIVE GASTROENTERITIS AND COLITIS, UNSPECIFIED (2) Diverticulitis Code(s): K57.92 - DVTRCLI OF INTEST, PART UNSP, W/O PERF OR ABSCESS W/O BLEED Qualifiers: Diverticulitis site: large intestine Diverticulitis bleeding: without bleeding Diverticulitis complication: without perforation or abscess Qualified Code(s): K57.32 - Diverticulitis of large intestine without perforation or abscess without bleeding (3) Abdominal pain Code(s): R10.9 - UNSPECIFIED ABDOMINAL PAIN Qualifiers: Abdominal location: unspecified location Qualified Code(s): R10.9 - Unspecified abdominal pain (4) Hypertension Code(s): I10 - ESSENTIAL (PRIMARY) HYPERTENSION Qualifiers: Hypertension type: essential hypertension Qualified Code(s): I10 - Essential (primary) hypertension Assessment/Plan Surgery: Patient feels better, has no abdominal pain. Abdomen is soft , not tender. Stools : positive for occult blood, C.Diff positive. Diagnosis : Infectious diarrhea. On antibiotics. WBC 26603 On Cipro, Metronidazole and Vancomycin. Has gall bladder poyp, will be dealt with electively, upon discharge and resolution of colitis. Will sign off for now.
[2016-05-16] MEDS: METOCLOPRAMIDE HCL 10 MG TABLET (FP) PO SCH ×2 (06:02→11:09)
[2016-05-16] MEDS: VANCOMYCIN 250 MG/5 ML ORAL SOLUTION PO SCH ×2 (06:02→11:10)
[2016-05-16 06:13] VITALS: BP 129/74; PULSE 67; TEMP 97.6
--- NOTE | 2016-05-16 09:19 | DS ---
Physical Examination Vital Signs: Vital Signs Temperature 97.6 F 05/16/16 06:00 Pulse Rate 67 05/16/16 06:00 Respiratory Rate 20 05/16/16 06:00 Blood Pressure 129/74 05/16/16 06:00 O2 Sat by Pulse Oximetry (%) 98 05/15/16 21:00 Cardiovascular: Yes: Regular Rate and Rhythm Respiratory: Yes: Regular, CTA Bilaterally Gastrointestinal: Yes: Normal Bowel Sounds, Soft. No: Tenderness Labs: CBC, BMP 05/14/16 08:18 05/14/16 08:18 Discharge Summary Reason For Visit: ABD PAIN Current Active Problems Abdominal pain (Acute) Clostridium difficile colitis (Acute) Colitis (Acute) Hypertension (Acute) Infectious diarrhea (Acute) Hospital Course: 60yo Female patient with extensive history and allergies presents to ED c/o lower abd pain with nausea/vomiting-constant & diarrhea-x 10 starting at 6pm last night. Patient state she has history of Diverticulitis recurrent. She states she had a follow up appointment with Dr. Ramirez but was unable to go because she was sick with an infection. Patient was seen by her PCP Dr. ramirez, blood work done 2 weeks ago, ultrasound of abdomen done yesterday as outpatient , but she did not get any results. Patient unable to tolerate po. Patient also states she has allergies to everything. Timing/Duration: reports: constant, getting worse Quality: reports: severe (10/10) Abdominal Pain Onset Location: reports: RUQ Pain Radiation: reports: back Activities at Onset: reports: no specific activity Treatment Prior to Arrive: worse with: analgesics, antacids, cold pack, heat, laxative, enema, other Aggravating Factors: worse with: None, Defecation, Eating, Emotional upset, Exertion, [place], Movement, Voiding, Change in position Alleviating Factors: worse with: None, Belching, Shallow Breathing, Defecation, Eating, Holding Breath, Passing Gas, Change in Position, Rest, Voiding, Vomiting per patient she came in yesterday she was having vomitting for the entire afternoon and evening with dry heaves and excructiing lower abdominal pain, she was so weak that she came in ER patient got flagyl and cipro in the er and antiemetics as well History Source: Patient - Past Medical History Cardiovascular: Yes: HTN - Problems (1) Abdominal pain GI AND SURGICAL F/U OUTPATIENT Code(s): R10.9 - UNSPECIFIED ABDOMINAL PAIN Qualifiers: Abdominal location: unspecified location Qualified Code(s): R10.9 - Unspecified abdominal pain (2) Colitis CDIFF COLITIS ON VANCO PO CHECK ESR AND CRP TODAY AND TOMORROW DC IVF , ENCOURAGE PO INTAKE Code(s): K52.9 - NONINFECTIVE GASTROENTERITIS AND COLITIS, UNSPECIFIED (3) Hypertension Code(s): I10 - ESSENTIAL (PRIMARY) HYPERTENSION Qualifiers: Hypertension type: essential hypertension Qualified Code(s): I10 - Essential (primary) hypertension (4) Infectious diarrhea Code(s): A09 - INFECTIOUS GASTROENTERITIS AND COLITIS, UNSPECIFIED (5) Clostridium difficile colitis CDIFF COLITIS ON VANCO PO CHECK ESR AND CRP TODAY AND TOMORROW DC IVF , ENCOURAGE PO INTAKE Code(s): A04.7 - ENTEROCOLITIS DUE TO CLOSTRIDIUM DIFFICILE Condition: Improved - Instructions Referrals: Yaneli Ramirez MD [Primary Care Provider] - 1 Week Disposition: HOME - Home Medications Comprehensive Discharge Medication List: Ambulatory Orders Lisinopril [Prinivil] 10 mg PO DAILY 04/14/13 Lactobacillus Acidophilus [Bacid -] 1 tab PO DAILY tab 05/16/16 Metoclopramide HCl [Reglan -] 5 mg PO TIDAC #90 tablet 05/16/16 Ranitidine [Zantac -] 150 mg PO BID #60 tablet 05/16/16 Simethicone [Mylicon -] 80 mg PO Q4H PRN #0 tab.chew 05/16/16 Vancomycin Oral Solution 250 mg PO Q6HPO #40 ml 05/16/16
[2016-05-16 09:29] LABS: BASOPHIL 0.5 % (0-2.0); EOSINOPHIL 2.2 % (0-4.5); MCH 27.1 pg (25.7-33.7); MCHC 32.6 g/dl (32.0-36.0); MEAN CELL VOLUME 83.2 fl (80-96); MEAN PLT VOLUME 9.1 fl (7.5-11.1); NEUTROPHILS 73.3 % (42.8-82.8); PLATELET COUNT 219 K/MM3 (134-434); RDW 14.1 % (11.6-15.6); WHITE BLOOD COUNT 8.8 K/mm3 (4.0-10.0)
[2016-05-16 09:42] LABS: ALBUMIN 3.5 g/dl (3.4-5.0); ANION GAP 2 (8-16); BILIRUBIN,TOTAL 0.7 mg/dL (0.2-1.0); C-REACTIVE PROTEIN 8.7 MG/DL (0.00-0.3); CO2 27 mmol/L (21-32); CREATININE 0.7 mg/dL (0.55-1.02); GLUCOSE,RANDOM 122 mg/dL (74-106); SGOT/AST 13 U/L (15-37); SGPT/ALT 18 U/L (12-78); TOT PROT 6.8 g/dl (6.4-8.2)
[2016-05-16 09:43] LABS: ALK PHOS 102 U/L (45-117)
[2016-05-16] MEDS: HEPARIN NA (PORCINE) 5,000 UNITS/ML 1ML VIAL SQ SCH (10:13)
[2016-05-16] MEDS: LACTOBACILLUS ACIDOPHILUS 1 EACH TAB (FP) PO SCH (10:15)
[2016-05-16] MEDS: RANITIDINE HCL 150 MG TABLET (FP) PO SCH (10:16)
[2016-05-16] MEDS: LISINOPRIL 10 MG TABLET (FP) PO SCH (10:16)
[2016-05-16] MEDS ORDERED: POTASSIUM CHLORIDE TABS 20 MEQ TABLET.ER (FP) PO ONE (10:40)
[2016-05-16 11:06] LABS: ERYTHROCYTE SEDIMENTATION RATE 53 mm/hr (0-30)
--- NOTE | 2016-05-16 11:16 | PN ---
Progress Note, Physician History of Present Illness: Improved No c/o abdominal pain Reports one loose, non-bloody BM today No fever / chills - Current Medication List Current Medications: Active Medications Heparin Sodium (Porcine) (Heparin -) 5,000 unit SQ BID [facility] Last Admin: 05/16/16 10:13 Dose: Not Given Lactobacillus Acidophilus (Bacid -) 1 tab PO DAILY [facility] Last Admin: 05/16/16 10:15 Dose: 1 tab Lisinopril (Prinivil) 10 mg PO DAILY [facility] Last Admin: 05/16/16 10:16 Dose: Not Given Metoclopramide HCl (Reglan -) 5 mg PO TIDAC [facility] Last Admin: 05/16/16 11:09 Dose: 5 mg Ondansetron HCl (Zofran Odt -) 8 mg SL Q6H PRN PRN Reason: NAUSEA AND/OR VOMITING Ranitidine HCl (Zantac -) 150 mg PO BID [facility] Last Admin: 05/16/16 10:16 Dose: 150 mg Simethicone (Mylicon -) 80 mg PO Q4H PRN PRN Reason: DYSPEPSIA Last Admin: 05/14/16 14:45 Dose: 80 mg Vancomycin HCl (Vancomycin Oral Solution) 250 mg PO Q6HPO [facility] Last Admin: 05/16/16 11:10 Dose: 250 mg - Objective Vital Signs: Vital Signs Temperature 97.6 F 05/16/16 06:00 Pulse Rate 67 05/16/16 06:00 Respiratory Rate 20 05/16/16 09:00 Blood Pressure 129/74 05/16/16 06:00 O2 Sat by Pulse Oximetry (%) 98 05/16/16 09:00 Constitutional: Yes: No Distress Eyes: Yes: Conjunctiva Clear Cardiovascular: Yes: Regular Rate and Rhythm, S1, S2 Respiratory: Yes: CTA Bilaterally Gastrointestinal: Yes: Normal Bowel Sounds, Soft. No: Tenderness Edema: No Labs: CBC, BMP 05/16/16 09:05 05/16/16 09:05 INR, PTT INR 1.11 (0.82-1.09) 05/13/16 07:50 Assessment/Plan C difficile colitis- improved Continue po vancomycin Complete 14d course
== END 2016-05-16 11:29 | disposition home or self-care (01) | DRG 248 ==
LOC: JER 03:56 → JERBED 09:19 → J6S 16:53
PROVIDERS: ADMIT Family Medicine; ATTEND Family Medicine
DX: A04.7 Enterocolitis due to Clostridium difficile (principal); R11.2 Nausea with vomiting, unspecified; I10 Essential (primary) hypertension; K82.4 Cholesterolosis of gallbladder; R10.30 Lower abdominal pain, unspecified
CPT/HCPCS: 36415; 74176-TC; 80053; 81003; 81015; 82150; 82272; 83690; 85025; 85610; 85651; 86140; 86803; 86850; 86900; 86901; 87045; 87046; 87177; 87205; 87207; 87209; 87324; 87328; 87329; 87449; 99283-25; Q9967

== ENCOUNTER 2018-08-13 05:29 | Emergency (ER) | payer OTHER ==
--- NOTE | 2018-08-13 05:50 | PDOC ---
Attending Attestation - Resident Resident Name: Josias Ang - ED Attending Attestation I have performed the following: I have examined & evaluated the patient, The case was reviewed & discussed with the resident, I agree w/resident's findings & plan - HPI HPI: 08/13/18 06:16 Pt comes with rectal bleed BRBPR with stools only x 24hrs. She has had diarrhea x 24 hrs. - Physicial Exam PE: 08/13/18 06:16 Agree with resident exam. Pt is afebrile. Abd soft NT ND; slight left sided abd pain. - Medical Decision Making 08/13/18 06:17 Pt will get labs and a CT abd/pelvis. Pt will be signed out to the ER day team who will further dispo the patient. 08/13/18 06:50 Stool guaiac is negative
[2018-08-13 06:19] VITALS: TEMP 98.4; BMI 36.0
--- NOTE | 2018-08-13 06:28 | PDOC ---
History of Present Illness - General Stated Complaint: ABD PAIN Time Seen by Provider: 08/13/18 05:48 - History of Present Illness Initial Comments: 08/13/18 06:30 62F with pmh of diverticulitis, thyroid cancer, hemorrhoids, GERD, and c.Diff presents to the Ed for multiple episodes of bright red blood per rectum for the past 24h. She only sees blood when she moves her bowels and it is coating her mustard- colored feces. Denies fever, n/v/ chest pain. Past History - Past Medical History Allergies/Adverse Reactions: Allergies Allergy/AdvReac Type Severity Reaction Status Date / Time aspirin Allergy Verified 08/13/18 06:19 clindamycin Allergy Verified 08/13/18 06:19 codeine Allergy Verified 08/13/18 06:19 epinephrine Allergy Verified 08/13/18 06:19 iodine Allergy Verified 08/13/18 06:19 latex Allergy Verified 08/13/18 06:19 magnesium Allergy Verified 08/13/18 06:19 meperidine HCl [From Demerol] Allergy Verified 08/13/18 06:19 metronidazole [From Flagyl] Allergy Verified 08/13/18 06:19 peanut Allergy Verified 08/13/18 06:19 Penicillins Allergy Verified 08/13/18 06:19 shellfish derived Allergy Verified 08/13/18 06:19 Sulfa (Sulfonamide Allergy Verified 08/13/18 06:19 Antibiotics) garlic AdvReac Verified 08/13/18 06:19 prilocec Allergy Uncoded 08/13/18 06:19 Home Medications: Ambulatory Orders Lisinopril [Prinivil] 10 mg PO DAILY 04/14/13 Anemia: Yes (1995) Asthma: Yes Cancer: No Cardiac Disorders: Yes (MURMUR) CVA: No COPD: No CHF: No Dementia: No Diabetes: No GI Disorders: Yes (REFLUX) Disorders: No HTN: Yes Hypercholesterolemia: Yes Liver Disease: No Seizures: Yes Thyroid Disease: No Other medical history: Diverticulitis, Acid reflux, Left ear deafness - Surgical History Abdominal Surgery: No Appendectomy: (1966) Cardiac Surgery: No Cholecystectomy: No Lung Surgery: No Neurologic Surgery: No Orthopedic Surgery: No - Suicide/Smoking/Psychosocial Hx Smoking History: Never smoked Information on smoking cessation initiated: No Hx Alcohol Use: No Drug/Substance Use Hx: No Substance Use Type: None Hx Substance Use Treatment: No Abd/GI Specific PMHX - Complaint Specific PMHX Colitis: No Diverticulitis: No Gall Bladder Disease: No GERD: No Hepatitis: No Irritable Bowel Synd (IBS): No Pancreatitis: No GI Ulcer Disease: No Review of Systems - Review of Systems Able to Perform ROS?: Yes Is the patient limited [place] proficient: No Constitutional: No: Symptoms Reported HEENTM: No: Symptoms Reported Respiratory: No: Symptoms reported Cardiac (ROS): No: Symptoms Reported ABD/GI: Yes: See HPI : No: Symptoms Reported Musculoskeletal: No: Symptoms Reported Integumentary: No: Symptoms Reported Neurological: No: Symptoms reported All Other Systems: Reviewed and Negative *Physical Exam - Vital Signs Last Vital Signs Temp Pulse Resp BP Pulse Ox 98.4 F 88 18 140/70 98 08/13/18 06:11 08/13/18 06:11 08/13/18 06:11 08/13/18 06:11 08/13/18 06:11 - Physical Exam General Appearance: Yes: Obese HEENT: positive: EOMI, LAMAR, Normal ENT Inspection Respiratory/Chest: positive: Lungs Clear, Normal Breath Sounds. negative: Chest Tender, Respiratory Distress Cardiovascular: positive: Regular Rhythm, Regular Rate, S1, S2 Gastrointestinal/Abdominal: positive: Normal Bowel Sounds, Flat, Soft. negative : Tender Rectal Exam: positive: normal exam. negative: heme negative stool, hemorrhoids Extremity: positive: Normal Capillary Refill, Normal Inspection, Normal Range of Motion Integumentary: positive: Normal Color, Dry, Warm Neurologic: positive: Fully Oriented, Alert, Normal Mood/Affect, Normal Response , Motor Strength 5/5 ED Treatment Course - ADDITIONAL ORDERS Additional order review: Laboratory Results 08/13/18 06:04 Stool Occult Blood Negative Medical Decision Making - Medical Decision Making 08/13/18 06:48 62f with BRBPR since this morning. As the patient states that she has a h/o hemorrhoids and was straining for an hour and half yesterday moving her bowels this may have cause her to bleed every BM. However negative occult rectal blood. Ct abdomen non-con was ordered to r/o diverticulitis as the patient states she is highly allergic to contrast. Labs pending. Patient signed out to Dr. Valencia. *DC/Admit/Observation/Transfer Diagnosis at time of Disposition: Bright red blood per rectum - Referrals - Patient Instructions - Post Discharge Activity
--- NOTE | 2018-08-13 07:07 | PDOC ---
*Physical Exam - Vital Signs Last Vital Signs Temp Pulse Resp BP Pulse Ox 98.4 F 88 18 140/70 98 08/13/18 06:11 08/13/18 06:11 08/13/18 06:11 08/13/18 06:11 08/13/18 06:35 ED Treatment Course - LABORATORY CBC & Chemistry Diagram: 08/13/18 07:00 08/13/18 07:00 - ADDITIONAL ORDERS Additional order review: Laboratory Results 08/13/18 06:04 Stool Occult Blood Negative Medical Decision Making - Medical Decision Making 08/13/18 07:07 Pt signed out to me by Dr. Ang Pt is a 62yo F with PMH of diverticulitis, thyroid cancer, hemorrhoids, GERD, and c.Diff presenting to ED for multiple episodes of BRBPR x24h Denies fever, n/v/ chest pain. -follow up labs and CT result 08/13/18 07:26 CT: Enlarged uterus with prominent endometrial stripe complex, approximately 1 cm thick. Advise further evaluation with ultrasound. Apparent thickening descending and proximal sigmoid colon with faint paracolic fat haziness, suspect due to underdistention and prominent mesenteric vessels more likely than colitis. Correlate clinically. No bowel ileus, obstruction, diverticulitis, free fluid or free air. Appendix not seen. No pericecal inflammation to suggest acute appendicitis. No nephrolithiasis, ureterolithiasis or obstructive uropathy. No bladder calculi. Unremarkable pancreas and gallbladder 08/13/18 07:39 lab significant for wbc 11.6. guaiac negative UA negative for infection. With white count and diarrhea, will call Dr. Ramirez and discuss outpt abx. pt has many allergies. Per dr. Ramirez pt could be on flagyl and/or cipro. Avel give pt cipro 500 bid x5 days. pt agrees to plan. will f/u with gi. safe for dc home. pt agrees to plan. given return precautions. 08/13/18 19:11 *DC/Admit/Observation/Transfer Diagnosis at time of Disposition: Bright red blood per rectum Diarrhea Qualifiers: Diarrhea type: unspecified type Qualified Code(s): R19.7 - Diarrhea, unspecified - Discharge Dispostion Disposition: HOME Condition at time of disposition: Good Decision to Admit order: No - Prescriptions Prescriptions: Ciprofloxacin [Cipro -] 500 mg PO Q12H #10 tablet - Referrals Referrals: Paolo Ramirez MD [Staff Physician] - - Patient Instructions Printed Discharge Instructions: Diarrhea Additional Instructions: You were seen in the emergency room today for diarrhea and blood in the stool. The guaiac test, which looks for blood in the stool, was negative. The CT results were given to you. A prescription for Cipro was sent to your pharmacy. Please take as directed. Stop taking if you think you are developing a reaction. I highly recommend making an appointment with Dr. Ramirez today or within the next 3 days. Come back to the emergency room if diarrhea gets worse, you have fevers or if any new concerning symptom develops. Thank you - Post Discharge Activity
[2018-08-13 07:26] LABS: BASO % 0.4 % (0-2.0); EOS % 1.4 % (0-4.5); HEMATOCRIT 41.1 % (32.4-45.2); HEMOGLOBIN 13.4 GM/dL (10.7-15.3); MCHC 32.6 g/dl (32.0-36.0); MEAN PLT VOLUME 9.6 fl (7.5-11.1); MONO % 4.8 % (3.8-10.2); NEUT % 79.4 % (42.8-82.8); PLATELET COUNT 235 K/MM3 (134-434); RBC 4.95 M/mm3 (3.60-5.2); RDW 14.3 % (11.6-15.6); WHITE BLOOD COUNT 11.6 K/mm3 (4.0-10.0)
[2018-08-13 07:41] LABS: ALBUMIN 3.7 g/dl (3.4-5.0); ALK PHOS 130 U/L (45-117); ANION GAP 8 MMOL/L (8-16); BILIRUBIN,TOTAL 0.6 mg/dL (0.2-1); BLOOD UREA NITROGEN 11 mg/dL (7-18); CALCIUM 9.4 mg/dL (8.5-10.1); CHLORIDE 108 mmol/L (98-107); CO2 26 mmol/L (21-32); CREATININE 0.7 mg/dL (0.55-1.3); GLUCOSE,RANDOM 92 mg/dL (74-106); LIPASE 101 U/L (73-393); POTASSIUM 3.7 mmol/L (3.5-5.1); SGOT/AST 17 U/L (15-37); SGPT/ALT 21 U/L (13-61); SODIUM 142 mmol/L (136-145); TOT PROT 7.2 g/dl (6.4-8.2)
[2018-08-13 08:38] LABS: EPI CELLS 0.5 /HPF (0-5/HPF); PH,URINE 5.5 (5.0-8.0); URINE APPEARANCE CLEAR; URINE BACTERIA 20.5 /hpf (NEGATIVE); URINE BILIRUBIN NEGATIVE (NEGATIVE); URINE CASTS 1 /lpf (0-8); URINE COLOR YELLOW; URINE GLUCOSE (UA) NEGATIVE (NEGATIVE); URINE KETONE NEGATIVE (NEGATIVE); URINE LEUK ESTERASE NEGATIVE (NEGATIVE); URINE NITRITE NEGATIVE (NEGATIVE); URINE PROTEIN NEGATIVE (NEGATIVE); URINE RBC 2 /hpf (0-4); URINE UROBILINOGEN 0.2 mg/dL (0.2-1.0); URINE WBC 1 /hpf (0-5)
[2018-08-13 08:55] LABS: INR 0.98 (0.83-1.09); PROTHROMBIN TIME (PATIENT) 11.6 SEC (9.7-13.0)
[2018-08-13 08:58] LABS: ACTIVATED PTT 33.3 SECONDS (25.2-36.5)
[2018-08-13 10:11] VITALS: BP 133/73; PULSE 83
== END 2018-08-13 09:30 | disposition home or self-care (01) ==
LOC: JER 05:29
DX: K62.5 Hemorrhage of anus and rectum (principal); I10 Essential (primary) hypertension; E78.5 Hyperlipidemia, unspecified; K21.9 Gastro-esophageal reflux disease without esophagitis; H91.92 Unspecified hearing loss, left ear; Z87.19 Personal history of other diseases of the digestive system
CPT/HCPCS: 36415; 74176-TC; 80053; 81003; 82272; 83690; 85025; 85610; 85730; 86850; 86900; 86901; 87086; 99282-25

== ENCOUNTER 2020-09-06 00:14 | Emergency (ER) | payer OTHER ==
[2020-09-06] MEDS ORDERED: ONDANSETRON 4 MG/2 ML VIAL ONE (00:49)
[2020-09-06 00:57] VITALS: BMI 32.5
[2020-09-06] MEDS ORDERED: SODIUM CHLORIDE 1,000 ML IV STA (01:17)
[2020-09-06] MEDS ORDERED: ONDANSETRON 4 MG/2 ML VIAL IVPUSH ONE (01:18)
[2020-09-06 01:25] LABS: BASO % 0.2 % (0-2.0); EOS % 0.1 % (0-4.5); HEMATOCRIT 44.1 % (32.4-45.2); HEMOGLOBIN 14.5 GM/dL (10.7-15.3); LYMPH % 6.5 % (8-40); MCH 27.5 pg (25.7-33.7); MCHC 32.9 g/dl (32.0-36.0); MEAN CELL VOLUME 83.5 fl (80-96); MEAN PLT VOLUME 9.9 fl (7.5-11.1); MONO % 3.5 % (3.8-10.2); NEUT % 89.7 % (42.8-82.8); PLATELET COUNT 203 K/MM3 (134-434); RBC 5.28 M/mm3 (3.60-5.2); RDW 14.4 % (11.6-15.6); WHITE BLOOD COUNT 12.5 K/mm3 (4.0-10.0)
[2020-09-06 01:51] LABS: ALBUMIN 3.8 g/dl (3.4-5.0)
[2020-09-06 01:52] LABS: BLOOD UREA NITROGEN 12.6 mg/dL (7-18)
[2020-09-06 01:55] LABS: CREATININE 0.8 mg/dL (0.55-1.3)
[2020-09-06 01:56] LABS: BILIRUBIN,TOTAL 0.6 mg/dL (0.2-1); TOT PROT 7.5 g/dl (6.4-8.2)
[2020-09-06 02:09] LABS: PH,URINE 7.5 (5.0-8.0); URINE APPEARANCE CLEAR; URINE BILIRUBIN NEGATIVE (NEGATIVE); URINE COLOR YELLOW; URINE GLUCOSE (UA) NEGATIVE (NEGATIVE); URINE KETONE NEGATIVE (NEGATIVE); URINE LEUK ESTERASE NEGATIVE (NEGATIVE); URINE NITRITE NEGATIVE (NEGATIVE); URINE PROTEIN NEGATIVE (NEGATIVE); URINE UROBILINOGEN 0.2 mg/dL (0.2-1.0)
[2020-09-06] MEDS ORDERED: morphine CARPU-JECT 2 MG/1 ML DISP.SYRIN IVPUSH ONE (02:57)
[2020-09-06] MEDS ORDERED: HYOSCYAMINE SULFATE 0.125 MG TABLET PO ONE (04:26)
[2020-09-06 04:56] VITALS: BP 141/65; PULSE 72; TEMP 98.5
== END 2020-09-06 06:25 | disposition home or self-care (01) ==
LOC: JER 00:14
PROC: 3E033NZ Introduction of Analgesics, Hypnotics, Sedatives into Peripheral Vein, Percutaneous Approach (ICD-10-PCS; principal; 2020-09-06)
PROC: 3E033GC Introduction of Other Therapeutic Substance into Peripheral Vein, Percutaneous Approach (ICD-10-PCS; 2020-09-06)
PROC: 3E0337Z Introduction of Electrolytic and Water Balance Substance into Peripheral Vein, Percutaneous Approach (ICD-10-PCS; 2020-09-06)
DX: R10.84 Generalized abdominal pain (principal); R11.2 Nausea with vomiting, unspecified
CPT/HCPCS: 36415; 74176-TC; 80053; 81003; 82550; 83605; 83690; 84484; 85025; 87086; 93005; 93010; 96361; 96374; 96375; 99285-25

== ENCOUNTER 2022-11-08 11:56 | Emergency (ER) | payer OTHER, MEDICARE ==
[2022-11-08 12:15] VITALS: BP 119/75; PULSE 101; RESP 18; TEMP 98; BMI 34.1
== END 2022-11-08 12:57 | disposition home or self-care (01) ==
LOC: FER 11:56
DX: R21 Rash and other nonspecific skin eruption (principal)
CPT/HCPCS: 99283-25